=== PATIENT | female | born 1995 | race Caucasian/White ===

== ENCOUNTER 2017-11-22 15:44 | Emergency (ER) | payer OTHER ==
[~2017-11-22] VITALS: Ht 165.1 cm; Wt 63.5 kg
== END 2017-11-22 18:06 | disposition home or self-care (01) ==
LOC: ER 15:44
DX: S13.4XXA Sprain of ligaments of cervical spine, initial encounter (principal); S46.911A Strain of unspecified muscle, fascia and tendon at shoulder and upper arm level, right arm, initial encounter; V49.9XXA Car occupant (driver) (passenger) injured in unspecified traffic accident, initial encounter; Y93.89 Activity, other specified; Y92.488 Other paved roadways as the place of occurrence of the external cause; Y99.8 Other external cause status

== ENCOUNTER 2024-11-23 17:21 | Emergency (ER) | payer OTHER ==
[~2024-11-23] VITALS: Ht 165.1 cm; Wt 77.1 kg
[2024-11-23] MEDS ORDERED: SYNTHROID75 MCG (18:35)
[2024-11-23] MEDS ORDERED: FAMOtidine 10 MG/ML (4ML VIAL) IV ONE (19:00)
[2024-11-23] MEDS ORDERED: ONDANSETRON HCL 2 MG/ML VIAL IV ONE (19:00)
[2024-11-23] MEDS ORDERED: 0.9 % SODIUM CHLORIDE 1,000 ML IV ONE (19:00)
[2024-11-23] MEDS ORDERED: FAMOTIDINE/PF 20 MG/2 ML VIAL ONE (19:41)
[2024-11-23] MEDS ORDERED: ONDANSETRON HCL 2 MG/ML VIAL ONE (19:41)
[2024-11-23 19:50] LABS: BASO % 0.2 % (0.1-1.2); EOS # 0.04 (0.04-0.54); EOS % 0.4 % (0.7-7.0); HEMATOCRIT 36.9 % (34.1-44.9); HEMOGLOBIN 12.6 g/dL (11.2-15.7); LYMPH # 1.55 (1.18-3.74); MEAN CORPUSCULAR HEMOGLOBIN 28.6 pg (25.6-32.2); MONO # 0.58 (0.24-0.82); MONO % 5.2 % (4.7-12.5); NEUT # 8.85 (1.56-6.13); NEUT % 79.9 % (34.0-71.1); PLATELET COUNT 231 K/uL (163-369); RED CELL DISTRIBUTION WIDTH 12.5 % (11.6-14.4)
[2024-11-23 20:01] LABS: INFLUENZA A AG NEGATIVE (NEGATIVE); INFLUENZA B AG NEGATIVE (NEGATIVE)
[2024-11-23 20:14] LABS: ALBUMIN 3.4 gm/dL (3.4-5.0); BILIRUBIN TOTAL 0.5 mg/dL (0.3-1.2); CALCIUM 9.1 mg/dL (8.5-10.1); CREATININE SERUM 0.44 mg/dL (0.55-1.02); GFR 169.05; POTASSIUM 3.77 mEq/L (3.5-5.1); TOTAL PROTEIN 7.4 gm/dL (6.4-8.2)
[2024-11-23 20:26] LABS: COVID-19 AG NEGATIVE (NEGATIVE)
[2024-11-23 21:34] LABS: URINE APPEARANCE Clear; URINE BILIRRUBIN Negative (NEGATIVE); URINE BLOOD Moderate; URINE COLOR Yellow; URINE GLUCOSE Negative (NEGATIVE); URINE LEUKOCYTE Negative; URINE NITRATE Negative; URINE PROTEIN Negative (NEGATIVE); URINE UROBILINOGEN 0.2 E.U./dl
[2024-11-23 21:45] LABS: URINE BACTERIA 1008.4 uL (0.0-1933); URINE RBC 48.4 uL (0.0-20.8); URINE WBC 17.2 uL (0.0-23.2)
[2024-11-23 22:15] LABS: URINE CAST 0.29 uL (0.0-1.40); URINE KETONE >=160 (NEGATIVE)
[2024-11-23] MEDS ORDERED: PEPCID AC20 MG PO (22:41)
[2024-11-23] MEDS ORDERED: ZOFRAN8 MG PO (22:41)
== END 2024-11-23 23:21 | disposition home or self-care (01) ==
LOC: ER 17:21
PROVIDERS: General Practice
DX: O21.9 Vomiting of pregnancy, unspecified (principal); Z3A.11 11 weeks gestation of pregnancy; Z20.822 Contact with and (suspected) exposure to COVID-19; E03.9 Hypothyroidism, unspecified

== ENCOUNTER 2025-04-09 17:16 | Outpatient (CLI) | payer OTHER ==
[~2025-04-09 17:16] MED LIST: PEPCID AC20 MG PO; SYNTHROID75 MCG; ZOFRAN8 MG PO
== END 2025-04-09 17:50 | disposition home or self-care (01) ==
LOC: NST 17:16
PROVIDERS: ATTEND Obstetrics & Gynecology Gynecology
DX: Z34.83 Encounter for supervision of other normal pregnancy, third trimester (principal)

== ENCOUNTER 2025-04-22 14:52 | Outpatient (CLI) | payer OTHER | END 2025-04-22 16:14 | disposition home or self-care (01) | LOC: NST 14:52 | PROVIDERS: ATTEND Obstetrics & Gynecology Gynecology | DX: Z34.83 Encounter for supervision of other normal pregnancy, third trimester (principal) ==

== ENCOUNTER 2025-05-31 09:30 | Inpatient (IN) | payer OTHER ==
[~2025-05-31] VITALS: Ht 165.1 cm; Wt 3.6 kg
[2025-05-31 08:49] VITALS: BP 121/79; O2SAT 100
[2025-05-31] MEDS ORDERED: PRENATAL TABLE1 EAC1 PO (10:01)
[2025-05-31] MEDS ORDERED: RINGERS SOLUTION,LACTATED 1,000 ML IV SCH (10:15)
[2025-05-31] MEDS ORDERED: AMPICILLIN SODIUM 2,000 MG VIAL IV ONE (10:15)
[2025-05-31 10:35] LABS: BASO % 0.3 % (0.1-1.2); EOS # 0.06 (0.04-0.54); EOS % 0.6 % (0.7-7.0); LYMPH # 1.87 (1.18-3.74); LYMPH % 19.5 % (19.3-53.1); MEAN PLATELET VOLUME 9.80 fl (9.4-12.4); MONO # 0.70 (0.24-0.82); MONO % 7.3 % (4.7-12.5); NEUT # 6.85 (1.56-6.13); NEUT % 71.4 % (34.0-71.1); RED CELL DISTRIBUTION WIDTH 14.6 % (11.6-14.4)
[2025-05-31 10:55] LABS: INR < 0.93
[2025-05-31 11:48] LABS: ALT/SGPT 27.0 U/L (12-78); AST/SGOT 21.0 U/L (15-37); BILIRUBIN TOTAL 0.29 mg/dL (0.3-1.2); BUN CREA RATIO 17.0 (7.0-25.0); CREATININE SERUM 0.48 mg/dL (0.55-1.02); GFR 152.9; GLOBULINA 3.7 G/DL (2.4-3.5); GLUCOSE FASTING 83.0 mg/dL (65-100); OSMOLALITY SERUM 277.0 MOSM/KG (275-295)
[2025-05-31 12:47] VITALS: BP 120/82; O2SAT 100
[2025-05-31] MEDS ORDERED: AMPICILLIN SODIUM 1,000 MG VIAL IV SCH (13:00)
[2025-05-31] MEDS ORDERED: OXYTOCIN 500 ML IV ONE (14:15)
[2025-05-31 15:09] VITALS: BP 120/75
[2025-05-31] MEDS ORDERED: MORPHINE SULFATE 4 MG/ML CARTRIDGE IV ONE (16:15)
[2025-05-31] MEDS ORDERED: CEFAZOLIN SODIUM 1,000 MG VIAL IV SCH (17:15)
[2025-05-31 18:31] VITALS: BP 120/78
[2025-05-31] MEDS ORDERED: OXYTOCIN 10 UNITS/ML VIAL ONE (19:26)
[2025-05-31] MEDS ORDERED: ERYTHROMYCIN BASE OPHT 1GM EACH TUBE OP ONE (19:26)
[2025-05-31] MEDS ORDERED: KETOROLAC TROMETHAMINE 30 MG VIAL IV SCH (20:40)
[2025-05-31] MEDS ORDERED: OXYTOCIN 1,000 ML IV ONE (20:45)
[2025-05-31] MEDS ORDERED: MORPHINE SULFATE 4 MG/ML VIAL IV SCH (21:00)
[2025-05-31] MEDS ORDERED: AMPICILLIN SODIUM 1,000 MG VIAL ONE (23:58)
[2025-06-01 02:06] VITALS: BP 90/55; O2SAT 98
[2025-06-01] MEDS ORDERED: ACETAMINOPHEN 500 MG GEL..CAP PO SCH (06:00)
[2025-06-01 07:15] LABS: BASO % 0.1 % (0.1-1.2); EOS # 0.03 (0.04-0.54); EOS % 0.2 % (0.7-7.0); LYMPH # 1.71 (1.18-3.74); LYMPH % 13.4 % (19.3-53.1); MEAN PLATELET VOLUME 9.70 fl (9.4-12.4); MONO # 0.72 (0.24-0.82); MONO % 5.6 % (4.7-12.5); NEUT # 10.21 (1.56-6.13); NEUT % 80.1 % (34.0-71.1); RED CELL DISTRIBUTION WIDTH 14.4 % (11.6-14.4)
[2025-06-01] MEDS ORDERED: GABAPENTIN 300 MG CAPSULE PO SCH (09:00)
[2025-06-01] MEDS ORDERED: SIMETHICONE 125 MG CAPSULE PO SCH (09:00)
[2025-06-01] MEDS ORDERED: DOCUSATE SODIUM 100MG CAP PO SCH (09:00)
[2025-06-01] MEDS ORDERED: PNV,CALCIUM 72/IRON/FOLIC ACID 1 TAB TABLET PO SCH (09:00)
[2025-06-01 10:40] VITALS: BP 108/67; O2SAT 97
[2025-06-01 15:56] VITALS: BP 106/68
[2025-06-01 20:44] VITALS: BP 109/69
[2025-06-02] VITALS: BP 91/55
[2025-06-02 08:00] VITALS: BP 103/64
== END 2025-06-02 14:39 | disposition home or self-care (01) | DRG 788 ==
LOC: LDR 09:30 → O/R 19:49 → OB/GYN 21:42
PROVIDERS: ADMIT Obstetrics & Gynecology Gynecology; ATTEND Obstetrics & Gynecology Gynecology
PROC: 4A1HXCZ Monitoring of Products of Conception, Cardiac Rate, External Approach (ICD-10-PCS; 2025-05-31)
PROC: 10D00Z1 Extraction of Products of Conception, Low, Open Approach (ICD-10-PCS; principal; 2025-05-31 20:30)
DX: O82 Encounter for cesarean delivery without indication (principal); Z3A.37 37 weeks gestation of pregnancy; Z37.0 Single live birth